=== PATIENT | female | born 1995 | race Asian ===

== ENCOUNTER 2018-09-28 17:18 | Emergency (ER) | payer OTHER ==
[2018-09-28 17:29] VITALS: BP 112/79
--- NOTE | 2018-09-28 18:41 | XRAY Report ---
Reason: crush injury, slammed digit in car door. Procedure Date: 09/28/2018 Accession Number: [id number] / [id number] Procedure: XR - Finger(s) RT CPT Code: FULL RESULT: EXAM: RIGHT THIRD DIGIT RADIOGRAPHY EXAM DATE: 09/28/2018 05:43 PM. CLINICAL HISTORY: Crush injury, slammed digit in car door. COMPARISON: None. TECHNIQUE: 3 views. FINDINGS: Bones: No acute fractures or suspicious bone lesions. Joints: No subluxations. Soft Tissues: Unremarkable. IMPRESSION: No acute radiographic abnormalities. [facility]IA
--- NOTE | 2018-09-28 18:55 | ED Physician Documentation ---
PD HPI UPPER EXT INJURY - Stated complaint Stated Complaint: RT MIDDLE FINGER LAC - Chief complaint Chief Complaint: Trauma Ext - History obtained from History obtained from: Patient - History of Present Illness Location: Right, Finger (middle tip) Type of injury: Crush (finger tip got caught in door. Laceration at base of the fingernail and tip of finger with pain.) Timing - onset: Today Timing - details: Abrupt onset, Still present Worsened by: Palpating Associated symptoms: No: Weakness, Numbness Similar symptoms before: Has not had sx before Recently seen: Not recently seen Review of Systems Neurologic: denies: Focal weakness, Numbness, Near syncope PD PAST MEDICAL HISTORY - Past Medical History Past Medical History: No - Past Surgical History Past Surgical History: No - Present Medications Home Medications: Ambulatory Orders Medication Instructions Recorded Confirmed No Known Home Medications 09/28/18 09/28/18 - Allergies Allergies/Adverse Reactions: Allergies Allergy/AdvReac Type Severity Reaction Status Date / Time No Known Drug Allergies Allergy Verified 09/28/18 17:29 - Social History Does the pt smoke?: No Smoking Status: Never smoker PD ED PE NORMAL - Vitals Vital signs reviewed: Yes - General General: Alert and oriented X 3, No acute distress, Well developed/nourished - Derm Derm: Normal color, Warm and dry - Extremities Extremities: Other (right middle finger with tenderness at tip. The nail is mostly adherent and no blood under nail. The proximal nychia is lifted up and rests atop the tissue over the nychial fold, with some tear of the overlying skin over the nychial fold. No tenderness at joints and she hasd good flex and ext at DIP. ) - Neuro Neuro: Alert and oriented X 3, No motor deficit, No sensory deficit Results - Vitals Vitals: Oxygen O2 Source Room air - Rads (name of study) finger middle right Radiology: Prelim report reviewed (no fractures), See rad report PD MEDICAL DECISION MAKING - ED course Complexity details: considered differential (the middle finger proximal part of nail was lifted to atop the nychia area. The main part of the nail was still adherent and no subungual blood. The nychium part was tucked back down into the fold area and steri strips placed to hold it down. No sutures. ), d/w patient Departure - Departure Disposition: 01 Home, Self Care Clinical Impression: Nailbed avulsion Crushed finger, distal Qualifiers: Encounter type: initial encounter Qualified Code(s): S67.10XA - Crushing injury of unspecified finger(s), initial encounter Condition: Stable Record reviewed to determine appropriate education?: Yes Instructions: ED Crush Injury Finger No Fx Comments: Keep the finger clean and dry. Allow the Steri-Strips to fall off on their own after several days to week or so. These are holding the base of the nail down in place to best allow new nail growth. The new nail should have a way to grow out and will slowly grow out in the next several weeks/month. It may push loose the nail that is present or the current nail may stay and grow out. Recheck if signs of infection. Discharge Date/Time: 09/28/18 19:30
== END 2018-09-28 19:30 | disposition home or self-care (01) ==
LOC: ED 17:18
DX: S67.192A Crushing injury of right middle finger, initial encounter (principal); S61.312A Laceration without foreign body of right middle finger with damage to nail, initial encounter; W23.0XXA Caught, crushed, jammed, or pinched between moving objects, initial encounter
CPT/HCPCS: 73140; 99282; 99283